=== PATIENT | female | born 1990 | race Caucasian/White ===

== ENCOUNTER 2018-04-28 18:06 | Outpatient (CLI) | payer OTHER ==
[~2018-04-28] VITALS: Ht 165.1 cm; Wt 98.6 kg
[2018-04-28 18:18] VITALS: BP 119/71
== END 2018-04-28 20:26 | disposition home or self-care (01) ==
LOC: LDOP 18:06
PROVIDERS: ATTEND Obstetrics & Gynecology
DX: O62.9 Abnormality of forces of labor, unspecified (principal); Z3A.38 38 weeks gestation of pregnancy
CPT/HCPCS: 59025; 89060; 99211; G0463; Q0114

== ENCOUNTER 2018-04-29 13:46 | Outpatient (CLI) | payer OTHER ==
[~2018-04-29] VITALS: Ht 165.1 cm; Wt 98.6 kg
[2018-04-29 14:59] VITALS: BP 121/75
== END 2018-04-29 15:25 | disposition home or self-care (01) ==
LOC: LDOP 13:46
PROVIDERS: ATTEND Obstetrics & Gynecology
DX: O42.92 Full-term premature rupture of membranes, unspecified as to length of time between rupture and onset of labor (principal); Z3A.38 38 weeks gestation of pregnancy
CPT/HCPCS: 59025; 84112; 99211; G0463

== ENCOUNTER 2018-05-11 10:27 | Inpatient (IN) | payer OTHER ==
[~2018-05-11] VITALS: Ht 162.6 cm; Wt 100.0 kg
[2018-05-11] MEDS ORDERED: NEWBORN KIT ONE (23:01)
[2018-05-11] MEDS ORDERED: LIDOCAINE/PF 1%, 30ML ONE (23:02)
[2018-05-11] MEDS ORDERED: MISOPROSTOL 200 MCG TABLET ONE (23:02)
[2018-05-11] MEDS ORDERED: OXYTOCIN 30U/ 0.9% NaCL 500ML 500 ML ONE (23:02)
[2018-05-11] MEDS ORDERED: OXYTOCIN 30U/ 0.9% NaCL 500ML 500 ML IV ONE (23:10)
[2018-05-11] MEDS ORDERED: OXYTOCIN 30U/ 0.9% NaCL 500ML 500 ML IV PRN (23:10)
[2018-05-11] MEDS ORDERED: LACTATED RINGERS 1,000 ML IV SCH (23:10)
[2018-05-11] MEDS ORDERED: D5%-LACTATED RINGERS 1,000 ML IV SCH (23:10)
[2018-05-11] MEDS ORDERED: ONDANSETRON 2MG/ML, 2ML IVPush PRN (23:30)
[2018-05-11] MEDS ORDERED: METOCLOPRAMIDE 5 MG/ML, 2ML IVPush PRN (23:30)
[2018-05-11] MEDS ORDERED: FENTANYL PF 100 MCG/2ML IV PRN (23:30)
[2018-05-11] MEDS ORDERED: FENTANYL PF 100 MCG/2ML IVPush PRN (23:30)
[2018-05-11] MEDS ORDERED: CALCIUM CARBONATE 500 MG TAB.CHEW PO PRN (23:30)
[2018-05-11] MEDS ORDERED: MISOPROSTOL 25 MCG TABLET VG PRN (23:30)
[2018-05-11] MEDS ORDERED: TERBUTALINE 1 MG/ML, 1ML IVPush PRN (23:30)
[2018-05-11] MEDS ORDERED: MISOPROSTOL 25 MCG TABLET ONE (23:34)
[2018-05-11 23:46] LABS: MEAN CORPUSCULAR HEMOGLOBIN 27.3 pg (27.0-34.8); MEAN CORPUSCULAR HGB CONC 33.9 g/dL (32.4-35.8); MEAN CORPUSCULAR VOLUME 80.4 fL (80-100); MEAN PLATELET VOLUME 6.6 fL (7.4-10.4); PLATELET COUNT 340 x10^3/uL (130-400); RED BLOOD COUNT 4.04 x10^6/uL (3.82-5.3); RED CELL DISTRIBUTION WIDTH 13.6 % (9.6-15.2)
[2018-05-12 00:26] LABS: BASOPHILS # (AUTO) 0.04 x10^3/uL (0-0.1); BASOPHILS % (AUTO) 0 % (0-1); EOSINOPHILS # (AUTO) 0.05 x10^3/uL (0-0.4); EOSINOPHILS % (AUTO) 1 % (1-7); LYMPHOCYTES # (AUTO) 2.13 x10^3/uL (1-3.4); LYMPHOCYTES % (AUTO) 26 % (22-44); MD SCAN; MONOCYTES # (AUTO) 0.26 x10^3/uL (0.2-0.8); MONOCYTES % (AUTO) 3 % (2-9); NEUTROPHILS # (AUTO) 5.89 x10^3/uL (1.8-6.8); NEUTROPHILS % (AUTO) 70 % (42-75)
[2018-05-12] MEDS ORDERED: FENTANYL/BUPIV./NS/PF 250 ML EPIDCONT SCH ×2 (03:52→05:00)
[2018-05-12] MEDS ORDERED: FENTANYL PF 100 MCG/2ML ONE ×2 (04:06→18:56)
[2018-05-12] MEDS ORDERED: NALOXONE 0.4 MG/ML, 1ML IVPush PRN (05:00)
[2018-05-12] MEDS ORDERED: LACTATED RINGERS 1,000 ML IVBOLUS PRN (05:00)
[2018-05-12] MEDS ORDERED: EPHEDRINE 50 MG/ML, 1ML IVPush PRN (05:00)
[2018-05-12] MEDS ORDERED: EPHEDRINE 50 MG/ML, 1ML ONE (05:35)
[2018-05-12] MEDS: OXYTOCIN 30U/ 0.9% NaCL 500ML 500 ML IV SCH ×3 (07:19→18:59)
[2018-05-12] MEDS ORDERED: MISOPROSTOL 200 MCG TABLET PR PRN ×2 (07:30→19:00)
[2018-05-12] MEDS ORDERED: ACETAMINOPHEN 325 MG TABLET PO PRN ×4 (07:30→19:00)
[2018-05-12] MEDS ORDERED: MAGNESIUM HYDROXIDE 8%, 30ML UDC PO PRN (07:30)
[2018-05-12] MEDS ORDERED: DIPH,PERTUSS(ACELL),TET VAC/PF NC IM-VACC PRN ×2 (07:30→19:00)
[2018-05-12] MEDS ORDERED: OXYcodone/APAP 5/325MG TABLET PO PRN ×2 (07:30→19:00)
[2018-05-12] MEDS ORDERED: IBUPROFEN 600 MG TABLET PO PRN (07:30)
[2018-05-12] MEDS ORDERED: DOCUSATE 100 MG CAPSULE PO PRN (07:30)
[2018-05-12] MEDS ORDERED: CALCIUM CARBONATE 500 MG TAB.CHEW PO PRN ×2 (07:30→19:00)
[2018-05-12] MEDS ORDERED: RHOGAM FROM BLOOD BANK 1 NOTE EA IM/IV ONE (07:30)
[2018-05-12] MEDS ORDERED: ONDANSETRON 2MG/ML, 2ML IV PRN ×2 (07:30→19:00)
[2018-05-12] MEDS ORDERED: MEASLES,MUMPS&RUBELLA VACC/PF 0.5 ML SQ PRN (07:30)
[2018-05-12] MEDS: PRENATAL VIT/IRON/FA 1 EACH TABLET PO SCH (09:00)
[2018-05-12] MEDS: LACTATED RINGERS 1,000 ML IV SCH ×4 (10:41→18:59)
[2018-05-12] MEDS ORDERED: METOCLOPRAMIDE 5 MG/ML, 2ML ONE ×2 (18:53→18:55)
[2018-05-12] MEDS ORDERED: SODIUM CITRATE/CITRIC ACID 30 ML UDC ONE ×2 (18:53→18:55)
[2018-05-12] MEDS ORDERED: ONDANSETRON 2MG/ML, 2ML ONE (18:56)
[2018-05-12] MEDS ORDERED: OXYTOCIN 10 UNITS/ML, 1ML ONE (18:56)
[2018-05-12] MEDS ORDERED: CEFAZOLIN 1,000 MG ONE (18:56)
[2018-05-12] MEDS ORDERED: HYDROmorphone 2 MG/ML, 1ML ONE (18:56)
[2018-05-12] MEDS ORDERED: SODIUM CHLORIDE FLUSH 0.9%, 20 ML ONE (18:57)
[2018-05-12] MEDS ORDERED: METOCLOPRAMIDE 5 MG/ML, 2ML IV ONE (19:00)
[2018-05-12] MEDS ORDERED: SODIUM CITRATE/CITRIC ACID 30 ML UDC PO ONE (19:00)
[2018-05-12] MEDS ORDERED: morphine SULFATE 10 MG/ML, 1ML IVPush PRN ×2 (19:00)
[2018-05-12] MEDS ORDERED: MEASLES,MUMPS&RUBELLA VACC/PF 0.5 ML SQ-VACC PRN (19:00)
[2018-05-12] MEDS ORDERED: KETOROLAC 30 MG/1 ML IV SCH (19:00)
[2018-05-12] MEDS ORDERED: BUPIVACAINE/PF 0.5% ONE (19:00)
[2018-05-12] MEDS ORDERED: SIMETHICONE 80 MG CHEW TAB PO PRN (19:00)
[2018-05-12] MEDS ORDERED: IBUPROFEN 600 MG TABLET ONE (20:46)
[2018-05-12] MEDS ORDERED: KETOROLAC 30 MG/1 ML ONE (20:51)
[2018-05-12 21:40] VITALS: BP 108/66
[2018-05-12] MEDS: OXYcodone/APAP 5/325MG TABLET PO PRN (23:04)
[2018-05-13 01:40] VITALS: BP 109/71
[2018-05-13] MEDS: LACTATED RINGERS 1,000 ML IV SCH ×2 (02:59→04:59)
[2018-05-13] MEDS: KETOROLAC 30 MG/1 ML IV SCH ×5 (03:00→21:04)
[2018-05-13] MEDS: OXYTOCIN 30U/ 0.9% NaCL 500ML 500 ML IV SCH ×2 (03:19→04:59)
[2018-05-13] MEDS: OXYcodone/APAP 5/325MG TABLET PO PRN ×4 (03:34→15:39)
[2018-05-13 04:22] LABS: MEAN CORPUSCULAR HEMOGLOBIN 27.1 pg (27.0-34.8); MEAN CORPUSCULAR HGB CONC 33.8 g/dL (32.4-35.8); MEAN CORPUSCULAR VOLUME 80.1 fL (80-100); MEAN PLATELET VOLUME 6.8 fL (7.4-10.4); PLATELET COUNT 310 x10^3/uL (130-400); RED BLOOD COUNT 3.41 x10^6/uL (3.82-5.3); RED CELL DISTRIBUTION WIDTH 13.9 % (9.6-15.2)
[2018-05-13 04:30] VITALS: BP 110/63
[2018-05-13 04:41] LABS: BASOPHILS # (AUTO) 0.06 x10^3/uL (0-0.1); BASOPHILS % (AUTO) 0 % (0-1); EOSINOPHILS % (AUTO) 0 % (1-7); LYMPHOCYTES # (AUTO) 1.37 x10^3/uL (1-3.4); LYMPHOCYTES % (AUTO) 9 % (22-44); MD SCAN; MONOCYTES # (AUTO) 0.04 x10^3/uL (0.2-0.8); MONOCYTES % (AUTO) 0 % (2-9); NEUTROPHILS # (AUTO) 14.06 x10^3/uL (1.8-6.8); NEUTROPHILS % (AUTO) 91 % (42-75)
[2018-05-13 08:01] VITALS: BP 99/64
[2018-05-13] MEDS: PRENATAL VIT/IRON/FA 1 EACH TABLET PO SCH ×2 (09:00)
[2018-05-13 12:33] VITALS: BP 99/62
[2018-05-13 15:36] VITALS: BP 101/64
[2018-05-13 19:55] VITALS: BP 101/65
[2018-05-13] MEDS: DOCUSATE 100 MG CAPSULE PO PRN (21:04)
[2018-05-14] MEDS: KETOROLAC 30 MG/1 ML IV SCH ×2 (03:01→09:30)
[2018-05-14] MEDS: OXYcodone/APAP 5/325MG TABLET PO PRN (07:35)
[2018-05-14] MEDS: DOCUSATE 100 MG CAPSULE PO PRN (07:35)
[2018-05-14] MEDS: PRENATAL VIT/IRON/FA 1 EACH TABLET PO SCH ×2 (07:36→09:00)
[2018-05-14 07:45] VITALS: BP 105/71
[2018-05-14] MEDS ORDERED: OXYC-302 PO (09:58)
[2018-05-14] MEDS ORDERED: IBUP-1222 PO (09:58)
== END 2018-05-14 11:10 | disposition home or self-care (01) | DRG 787 ==
LOC: LDIP 22:57 → 2NW 05-12 21:14
PROVIDERS: ADMIT Obstetrics & Gynecology; ATTEND Obstetrics & Gynecology
PROC: 10907ZC Drainage of Amniotic Fluid, Therapeutic from Products of Conception, Via Natural or Artificial Opening (ICD-10-PCS; 2018-05-11)
PROC: 10H07YZ Insertion of Other Device into Products of Conception, Via Natural or Artificial Opening (ICD-10-PCS; 2018-05-11)
PROC: 3E033VJ Introduction of Other Hormone into Peripheral Vein, Percutaneous Approach (ICD-10-PCS; 2018-05-11)
PROC: 10D00Z1 Extraction of Products of Conception, Low, Open Approach (ICD-10-PCS; principal; 2018-05-12)
DX: O62.1 Secondary uterine inertia (principal); O99.324 Drug use complicating childbirth; O66.5 Attempted application of vacuum extractor and forceps; F11.90 Opioid use, unspecified, uncomplicated; Z37.0 Single live birth; Z3A.40 40 weeks gestation of pregnancy; D64.9 Anemia, unspecified; O99.02 Anemia complicating childbirth; Z71.51 Drug abuse counseling and surveillance of drug abuser; O99.824 Streptococcus B carrier state complicating childbirth
CPT/HCPCS: 36415; 82803; 85025; 86850; 86900; G0378; J0690; J1170; J1885; J2405; J3010; J3490; C1765; J2590; J2765; J7120